=== PATIENT | female | born 1970 | race African-American/Black ===

== ENCOUNTER 2018-02-16 13:16 | Emergency (ER) | payer OTHER ==
[~2018-02-16] VITALS: Ht 157.5 cm; Wt 113.9 kg
== END 2018-02-16 13:50 | disposition home or self-care (01) ==
LOC: FSED 13:16
DX: L02.211 Cutaneous abscess of abdominal wall (principal); I10 Essential (primary) hypertension
CPT/HCPCS: 99283

== ENCOUNTER → 2018-02-17 | Outpatient (CLI) | payer OTHER ==
--- NOTE | 2018-02-17 11:23 | Diagnostic Imaging Report ---
PROCEDURE:KNEE THREE VIEWS BILATERAL COMPARISON:None. INDICATIONS:BILATERAL KNEE PAIN FINDINGS: Tricompartmental degenerative changes in both knees with joint space narrowing slightly more severe on the left side. There are no fractures, dislocations, lytic or blastic lesions. The bones are well-mineralized. No joint effusions. The soft-tissues are unremarkable. CONCLUSION: Moderate degenerative changes about both knees. Dandy Medrano D.O. Dictated by: Dandy Medrano D.O. on 02/17/2018 at 11:31 Electronically approved by: Dandy Medrano D.O. on 02/17/2018 at 11:31
--- NOTE | 2018-02-18 08:29 | Diagnostic Imaging Report ---
History: Neck pain with right arm numbness, cervical spondylosis with radiculopathy symptoms. Comparison studies: None Technique: Sagittal T1, T2 and IR, axial T2 and axial gradient echo Intravenous contrast: None Findings: Alignment: Straightened cervical curvature may be positional. Cervicomedullary junction: No abnormalities. Patent foramen magnum. Soft tissues: No T2 hyperintense inflammatory changes. Spinal cord: Normal in size and signal from the foramen magnum through C7. Vertebrae: No acute fractures,, evidence of infection or neoplasm. Mild chronic anterior vertebral body height loss at T4. No marrow edema. Degenerative changes: C2-C3: Mild uncovertebral arthrosis without significant foraminal stenosis. Patent canal. C3-C4: Mild uncovertebral arthrosis without significant foraminal stenosis. Patent canal. C4-C5: Small asymmetric right disc osteophyte complex. Patent canal and foramina. C5-C6: Small symmetric disc bulge and uncovertebral arthrosis with mild bilateral foraminal stenosis. No significant canal stenosis. C6-C7: Mild uncovertebral arthrosis without significant foraminal stenosis. Patent canal. C7-T1: Patent canal and foramina. IMPRESSION: Mild degenerative changes with mild foraminal stenosis at C5-C6. No significant canal stenosis. No nerve root impingement. Signed by: Dr. Mickey Morrow M.D. on 02/18/2018 8:26 AM
--- NOTE | 2018-02-18 08:49 | Diagnostic Imaging Report ---
Exam: Lumbar spine MRI without IV contrast History: Low back pain with radiculopathy symptoms. Comparison studies: None Technique: Sagittal and axial T2 , sagittal T1 and IR, axial spin density oblique, coronal T2. Intravenous contrast: None Findings: Number of lumbar vertebral bodies: 5. Alignment: Normal lumbar lordosis. Mild thoracolumbar curvature convex to the left. Soft tissues: No T2 hyperintense inflammatory changes. Paraspinal muscles: No signal abnormalities. Well-preserved. No atrophic changes Lower thoracic cord: Normal in signal and morphology. The tip of the conus is at T12-L1. Cauda equina: No masses. No arachnoiditis. Vertebrae: No compression fractures, infection or neoplasm. Degenerative changes: L1-L2 and L2-L3: No abnormalities L3-L4: Asymmetric left disc bulge and mild facet arthrosis with mild left foraminal stenosis. Patent canal and right foramen. L4-L5: Symmetric disc bulge and mild facet arthrosis with mild bilateral foraminal stenosis. No significant canal stenosis. 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 Disc bulge, thickened ligamenta flava and bilateral facet arthrosis result in mild canal stenosis, narrowing of the bilateral subarticular recess sees and mild left foraminal stenosis. No significant right foraminal stenosis. No evidence of synovitis at the facets. Additional findings: Subcentimeter T2 hyperintense lesion in the interpolar left kidney may be a a cyst. IMPRESSION: 1. 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 Mild canal stenosis and narrowing of the right subarticular recess at L5-S1 with potential impingement on the right S1 nerve root which could be correlated for right S1 radiculopathy symptoms. 2. Mild multilevel degenerative foraminal stenosis from L3 to S1. Signed by: Dr. Mickey Morrow M.D. on 02/18/2018 8:45 AM
== END ==
LOC: MRI 08:12
PROVIDERS: ATTEND Physical Medicine & Rehabilitation Pain Medicine
DX: M47.22 Other spondylosis with radiculopathy, cervical region (principal); M47.27 Other spondylosis with radiculopathy, lumbosacral region; M25.562 Pain in left knee; M25.561 Pain in right knee
CPT/HCPCS: 72141; 72148

== ENCOUNTER 2020-04-20 20:55 | Emergency (ER) | payer OTHER ==
[~2020-04-20] VITALS: Ht 157.5 cm; Wt 113.9 kg
[2020-04-20] MEDS ORDERED: KETOROLAC TROMETHAMINE 60 MG/2 ML VIAL IM ONE (22:00)
[2020-04-20] MEDS ORDERED: CLINDAMYCIN PHOS 600 MG/ 4 ML VIAL IM ONE (22:00)
[2020-04-20] MEDS ORDERED: CLINDAMYCIN PHOS 600 MG/ 4 ML VIAL ONE (22:16)
[2020-04-20] MEDS ORDERED: KETOROLAC TROMETHAMINE 60 MG/2 ML VIAL ONE (22:16)
[2020-04-21] MEDS ORDERED: KETOROLAC TROME10 MG PO (00:11)
[2020-04-21] MEDS ORDERED: BACTRIM DS TAB1 EACH PO (00:11)
[2020-04-21] MEDS ORDERED: ULTRAM50 MG PO (00:11)
== END 2020-04-21 00:30 | disposition home or self-care (01) ==
LOC: FSED 21:45
DX: L03.116 Cellulitis of left lower limb (principal); M79.672 Pain in left foot; M89.9 Disorder of bone, unspecified; I10 Essential (primary) hypertension; E11.9 Type 2 diabetes mellitus without complications; E66.9 Obesity, unspecified
CPT/HCPCS: 73630; 99283; J1885